=== PATIENT | female | born 1960 | race Caucasian/White ===

== ENCOUNTER 2023-12-06 09:44 | Emergency (ER) | payer MEDICARE, OTHER ==
[~2023-12-06] VITALS: Ht 167.6 cm; Wt 83.5 kg
[2023-12-06 09:46] VITALS: TEMP 98
[2023-12-06 10:30] VITALS: PULSE 79; RESP 16; O2SAT 96
[2023-12-06] MEDS: IBUPROFEN 600 MG TAB PO STA (10:42)
[2023-12-06] MEDS ORDERED: ULTRAM 50MG50 MG PO (11:01)
== END 2023-12-06 11:20 | disposition home or self-care (01) ==
LOC: ER 09:50
DX: S42.031A Displaced fracture of lateral end of right clavicle, initial encounter for closed fracture (principal); V19.9XXA Pedal cyclist (driver) (passenger) injured in unspecified traffic accident, initial encounter; Y93.55 Activity, bike riding; Y92.488 Other paved roadways as the place of occurrence of the external cause; F41.9 Anxiety disorder, unspecified
CPT/HCPCS: 99284